=== PATIENT | male | born 1960 | race Caucasian/White ===

== ENCOUNTER → 2021-07-21 14:33 | Outpatient (BNVA) | payer OTHER, SELFPAY | PROVIDERS: Family Provider Internal Medicine; PCP Internal Medicine; Visit Provider Internal Medicine | DX: I25.10 Atherosclerotic heart disease of native coronary artery without angina pectoris (principal); I10 Essential (primary) hypertension; R06.00 Dyspnea, unspecified; F17.210 Nicotine dependence, cigarettes, uncomplicated; Z79.82 Long term (current) use of aspirin | CPT/HCPCS: 99204 ==

== ENCOUNTER 2021-10-14 09:46 | Outpatient (CLI) | payer OTHER, SELFPAY ==
--- NOTE | 2021-10-14 10:15 | USCV_ITS ---
Hung Cunningham Age: 61 Gender: M : 1960 Exam Date: 10/14/2021 10:04 Ordering Phys: Brock Hampton M.D ([email or web address]) Technologist: MICHAEL [place] [facility] [place]: SHORTNESS OF BREATH BP: 124 / 70 HR: 51 Rhythm: Sinus Technical Quality: Adequate MEASUREMENTS (Male / Female) Normal Values 2D ECHO LV Diastolic Diameter PLAX 4.5 cm 4.2 - 5.9 / 3.9 - 5.3 cm LV Systolic Diameter PLAX 2.9 cm IVS Diastolic Thickness 1.6 cm 0.6 - 1.0 / 0.6 - 0.9 cm IVS Systolic Thickness 1.9 cm LVPW Diastolic Thickness 1.8 cm 0.6 - 1.0 / 0.6 - 0.9 cm LVPW Systolic Thickness 1.7 cm LVOT Diameter 2.0 cm LV Ejection Fraction 2D Teich 64.9 % LV Ejection Fraction MOD 2C 59.7 % LV Ejection Fraction 2C AL 62.3 % LA Diameter 3.9 cm LA Width 5.0 cm LA Height 5.4 cm RA Width 4.4 cm RA Height 5.3 cm Aorta at Sinotubular Diameter 2.6 cm M-MODE Aortic Annulus Diameter 3.1 cm LA Ao Ratio MM 1.2 MV E Point Septal Separation 0.1 cm DOPPLER AV Peak Velocity 102.0 cm/s LVOT Peak Velocity 106.0 cm/s AV Area Cont Eq vti 3.0 cm squared AV Area Cont Eq pk 3.3 cm squared MV Peak Velocity 85.0 cm/s MV Area PHT 3.2 cm squared Mitral E to A Ratio 1.6 MV E' Velocity 45.0 cm/s Mitral E to MV E' Ratio 8.0 Mitral E to LV E' Lateral Ratio 7.7 Mitral E to LV E' Septal Ratio 8.4 TR Peak Velocity 222.7 cm/s TR Peak Gradient 19.8 mmHg TR Mean Velocity 212.7 cm/s TR Mean Gradient 19.1 mmHg TR Velocity Time Integral 84.2 cm TV Peak E Velocity 55.0 cm/s Right Atrial Pressure 8.0 mmHg Pulmonary Artery Systolic Pressu 27.8 mmHg PV Peak Velocity 82.0 cm/s RV Acceleration Time 0.1 s RV Ejection Time 0.3 s RV AcT/ET 0.3 FINDINGS Left Ventricle Normal left ventricular size. LV systolic function is normal with EF of 55-60%. No regional wall motion abnormalities. Diastolic function is normal Right Ventricle The right ventricle is normal in size and function. Right Atrium The right atrium is normal in size. Left Atrium The left atrium is normal in size. Mitral Valve Structurally normal mitral valve without significant stenosis or prolapse. There is mild mitral regurgitation. Aortic Valve Structurally normal aortic valve without significant sclerosis or stenosis. There is no aortic regurgitation. Tricuspid Valve Mild tricuspid regurgitation. Pulmonic Valve Not well-visualized Pericardium Normal pericardium without effusion. Aorta Normal ascending aorta dimension. IVC CONCLUSIONS LV systolic function is normal with EF 55 to 60%. Diastolic function is normal Mild mitral regurgitation. Mild tricuspid regurgitation. No comparison studies are available. Brock Hampton MD (Electronically Signed) Final Date: 23 October 2021 00:43 S
== END 2021-10-14 09:47 | disposition home or self-care (01) ==
LOC: RAD 09:47
PROVIDERS: Family Provider Internal Medicine; PCP Internal Medicine; Visit Provider Internal Medicine
DX: R06.02 Shortness of breath (principal); I08.1 Rheumatic disorders of both mitral and tricuspid valves
CPT/HCPCS: 93306

== ENCOUNTER → 2022-09-20 14:56 | Outpatient (BNVA) | payer OTHER, SELFPAY | PROVIDERS: Family Provider Internal Medicine; PCP Family Medicine; Visit Provider Otolaryngology | DX: K13.70 Unspecified lesions of oral mucosa (principal); F17.210 Nicotine dependence, cigarettes, uncomplicated | CPT/HCPCS: 99204 ==

== ENCOUNTER 2022-09-28 10:22 | Day surgery (SDC) | payer OTHER, SELFPAY ==
[2022-09-28] VITALS (10 sets, daily range): BP systolic 134–165; BP diastolic 77–120; PULSE 68–88; RESP 13–18; TEMP 36.1–36.8; O2SAT 97–100
[2022-09-28] MEDS: sodium chloride 0.9% 1,000 ML 30 ML IV (11:03)
--- NOTE | 2022-09-28 11:14 | ANES.PREANE2 ---
Pre-Anesthetic Assessment Height/Weight: Height 1.88 m Weight 83.915 kg Temp Pulse Resp BP Pulse Ox O2 Del Method 98.3 F 72 18 149/114 100 Room Air 09/28/22 11:07 09/28/22 11:07 09/28/22 11:07 09/28/22 11:07 09/28/22 11:07 09/28/22 11:07 Preop Diagnosis: Inner lower lip and gingival lesion Operation Date: 09/28/22 12:10 Proposed Procedures p 21109- excision of oral lesion on floor of mouth with repair K13.70(Not Applicable) - Sonido Zepeda MD Familial anesthetic complications: None Was Beta Virgilio taken within 24 hours: N/A Was Clonidine taken within 24 hours: N/A Last intake: Intake Last Liquid Date 09/27/22 Last Liquid Time 21:00 Last Solid Date 09/27/22 Last Solid Time 21:00 Social Tobacco and No alcohol Exam alert, oriented x 3, clear to auscultation bilaterally and regular rate & rhythm Airway Mallampati: Class I Dentition: other (no teeth) Comments: Comments: full vela Pulmonary Exertional Dyspnea CV/HEM Coronary Artery Disease (stents) and Myocardial Infarction Echo CONCLUSIONS ?LV systolic function is normal with EF 55 to 60%. ?Diastolic function is normal ?Mild mitral regurgitation. ?Mild tricuspid regurgitation. ?No comparison studies are available. GI Gastroesophageal Reflux Disease Metabolic Hyperlipidemia Anesthetic Plan ASA status: 3 Anesthesia: General Risk of > 500 ml blood loss (7ml/kg in children): No Other Pertinent Information Patient missed his lexiscan appointment. Discussed with Dr. Hampton regarding general anesthetic in patient with pending stress test. States that since patient's echo was normal, if patient states he is not still having DAILY and is able to achieve 4 METs its reasonable to proceed, but if patient continues to be symptomatic we should reschedule. Patient states he does not have shortness of breath anymore and states he's able to climb 2 to 3 flights of stairs without any symptoms. 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 Patient re-affirmed he is no longer experiencing any SOB with this knowledge. Medications/Allergies Home Medications Medication Instructions Recorded Confirmed Last Taken Type ergocalciferol (vitamin D2) 1,250 1,250 mcg PO DAILY 06/14/20 09/27/22 09/26/22 History mcg (50,000 unit) capsule lisinopril 20 mg tablet 20 mg PO DAILY 06/14/20 09/27/22 09/27/22 History omeprazole 20 mg capsule,delayed 20 mg PO DAILY 06/14/20 09/27/22 09/27/22 History release pregabalin 100 mg capsule 100 mg PO DAILY 06/14/20 09/27/22 09/27/22 History aspirin 81 mg tablet,delayed 81 mg PO DAILY 07/21/21 09/27/22 09/25/22 History release (Adult Aspirin Regimen) atorvastatin 80 mg tablet 80 mg PO DAILY 07/21/21 09/27/22 09/26/22 History buspirone 15 mg tablet 7.5 mg PO TID 07/21/21 09/27/22 09/26/22 History ropinirole 1 mg tablet 1 mg PO TID 07/21/21 09/27/22 09/26/22 History sertraline 100 mg tablet 200 mg PO DAILY 07/21/21 09/27/22 09/26/22 History trazodone 150 mg tablet 300 mg PO DAILY 07/21/21 09/27/22 09/27/22 History Allergies Allergy/AdvReac Type Severity Reaction Status Date / Time methadone Allergy Unknown Verified 09/27/22 14:39 Current Medications Generic Name Dose Route Start Last Admin Trade Name Freq PRN Reason Stop Dose Admin Sodium Chloride 1,000 mls @ 30 mls/hr 09/28/22 10:45 09/28/22 11:03 Sodium Chloride 0.9% IV 09/29/22 10:44 30 mls/hr .Q24H TREVOR Administration PFSH Anesthesia Medical History Abnormal coronary angiogram History of inguinal hernia Hypertension Surgical History History of back surgery History of colonoscopy Family History Mother CAD (coronary artery disease) Hypertension Grandfather CAD (coronary artery disease) Hypertension Denies family history of Cancer Social History Smoking and tobacco status: current every day smoker Second hand smoke exposure: Yes Alcohol intake: never Substance/Drug Use: never Lives independently: Yes Household members: spouse Data Anesthesia Cardiac Studies: Echocardiogram 10/14/21
[2022-09-28] MEDS: fentaNYL 50 mcg/mL INJ 2mL IVP (11:17)
--- NOTE | 2022-09-28 12:21 | W.PM.OPSUD ---
Surgery/Procedure H&P Update DATE OF PROCEDURE: September 28, 2022 DATE H&P PERFORMED: 09/20/22 H&P UPDATE INFORMATION: I have reviewed H&P completed within last 30 days, I have examined patient prior to procedure and No changes to prior documentation CHANGES TO PREVIOUS DOCUMENTATION: No changes PREOP DIAGNOSIS: Inner lower lip and gingival lesion PRIMARY INDICATION FOR PROCEDURE: Inner lower lip/gingival buccal sulcus leukoplacic lesion PLANNED PROCEDURE: Operation Date: 09/28/22 12:10 Proposed Procedures p 82005- excision of oral lesion on floor of mouth with repair K13.70(Not Applicable) - Sonido Zepeda MD
[2022-09-28] MEDS: ceFAZolin 2,000 MG in sodium chloride 0.9% (plus) 50 ML 100 MG IV (12:26)
[2022-09-28] MEDS: lidocaine-epi 2% 1.7mL Cartridge (OR Only) 8.5 ML XX (12:57)
--- NOTE | 2022-09-28 13:09 | W.PM.OPSUD ---
Surgery/Procedure H&P Update DATE OF PROCEDURE: September 28, 2022 DATE H&P PERFORMED: 09/20/22 PREOP DIAGNOSIS: Inner lower lip and gingival lesion PLANNED PROCEDURE: Operation Date: 09/28/22 12:10 Proposed Procedures p 96186- excision of oral lesion on floor of mouth with repair K13.70(Not Applicable) - Sonido Zepeda MD
--- NOTE | 2022-09-28 13:09 | PM.OP ---
Operative Report Date of procedure: September 28, 2022 Pre-op diagnosis: Preop Diagnosis Inner lower lip and gingival lesion Post-op diagnosis: Lower gingival labial sulcus leukoplakic lesion and left upper gingival buccal sulcus leukoplakic lesion Post-op findings: Leukoplakic lesions centrally in the labial gingival sulcus and left upper gingival buccal sulcus Procedure done: Excision of oral lesions with repair for biopsy purposes Implants: No implants Specimens removed/disposition: Leukoplakic lesions as noted Pathology: Same for permanent section Surgeon: Sonido Zepeda MD Anesthesia: General and Local Estimated blood loss: 25 mL Complications: No complications encountered Findings: Patient had extremely tender leukoplakic lesions and central gingival labial sulcus and left upper gingival buccal sulcus. Brief History: 62-year-old male patient with leukoplakic lesions in the central gingival labial sulcus creeping over the edge of the alveolar ridge and also a lesion in the upper left gingival buccal sulcus which appeared to be similar in appearance. These were irregular white lesions with grooves. Because of the extreme tenderness and to rule out that this could potentially be more than just hyperkeratotic type changes and make sure that these were not potential malignant lesions, the patient is being taken to the operating room to undergo excision of these lesions for biopsy purposes. The procedure risks and complications explained and understood. Informed consent was granted and witnessed. Risks included bleeding infection numbness scarring swelling bruising recurrence need for additional treatment and more serious risks associated with anesthesia. With these things understood informed consent was granted and witnessed. Procedure: Description of procedure: The patient was placed on the operating table in the supine position. Adequate general Endo tracheal tube anesthesia was obtained. The endotracheal tube was taped superiorly out of the operative field. A timeout was accomplished identifying the patient date of plan procedure allergies fire risk and medications given. With all in agreement the procedure continued. Previous to this the patient had injection of 2% Xylocaine with 1 100,000 epinephrine in both locations. After several minutes the lower lesion was addressed first. The white irregular pattern extended from the superior alveolar ridge centrally down to the groove between the gingiva and inner lower lip and extended into the mucous membrane of the lower lip as well. This was removed in a fusiform excision pattern. After removal the area was closed with interrupted 4-0 chromic suture. A similar excision pattern was accomplished on the left upper gingival mucosal sulcus and again closed with interrupted 4-0 chromic suture. Both of these lesions measured approximately 1.5 cm. Therefore a total of 3 cm. The specimens were forwarded to pathology for permanent section diagnosis only and the mouth was irrigated with sterile water and suctioned clean. Patient then had drapes removed and the patient was returned to anesthesia for wake-up and extubation. Patient tolerated the procedure well had an estimated blood loss of 25 mL or less and arrived in recovery in stable condition.
--- NOTE | 2022-09-28 14:15 | ANE.PACU2 ---
Inpatient post-anesthesia follow up: Airway intact: Yes Vital signs: Temperature 97.0 F Pulse Rate 68 Respiratory Rate 18 Blood Pressure 156/120 Pulse Oximetry 97 Oxygen Delivery Me thod Room Air Oxygen Flow Rate 97 Fraction of Inspir ed Oxygen Hydration adequate: Yes Nausea and vomiting: Yes Pain level: 1 Mental status: Baseline
== END 2022-09-28 14:10 | disposition home or self-care (01) ==
PROVIDERS: PCP Family Medicine; Visit Provider Otolaryngology
PROC: (CPT 41826; principal; 2022-09-28 12:00)
DX: K13.21 Leukoplakia of oral mucosa, including tongue (principal); I25.10 Atherosclerotic heart disease of native coronary artery without angina pectoris; Z95.5 Presence of coronary angioplasty implant and graft; I08.1 Rheumatic disorders of both mitral and tricuspid valves; K21.9 Gastro-esophageal reflux disease without esophagitis; E78.5 Hyperlipidemia, unspecified; Z79.82 Long term (current) use of aspirin; I10 Essential (primary) hypertension; F17.200 Nicotine dependence, unspecified, uncomplicated
CPT/HCPCS: 41826 ×2; 88305; J0690; J1100; J2405; J2704; J2710; J3010; J3490; J7030

== ENCOUNTER → 2022-10-06 11:31 | Outpatient (BNVA) | payer OTHER, SELFPAY | PROVIDERS: PCP Family Medicine; Visit Provider Otolaryngology | DX: Z48.89 Encounter for other specified surgical aftercare (principal); K13.70 Unspecified lesions of oral mucosa | CPT/HCPCS: 99024 ==

== ENCOUNTER → 2023-08-07 13:38 | Outpatient (BNVA) | payer OTHER, SELFPAY | PROVIDERS: PCP Family Medicine; Visit Provider Surgery | DX: Z12.11 Encounter for screening for malignant neoplasm of colon (principal) | CPT/HCPCS: 99213 ==

== ENCOUNTER → 2024-11-19 15:03 | Outpatient (BNVA) | payer OTHER, SELFPAY | PROVIDERS: PCP Family Medicine; Visit Provider Internal Medicine | DX: I25.10 Atherosclerotic heart disease of native coronary artery without angina pectoris (principal); I10 Essential (primary) hypertension; Z79.82 Long term (current) use of aspirin; Z95.5 Presence of coronary angioplasty implant and graft; F17.200 Nicotine dependence, unspecified, uncomplicated; R07.9 Chest pain, unspecified | CPT/HCPCS: 93005; 99204 ==

== ENCOUNTER 2024-11-25 10:18 | Outpatient (CLI) | payer OTHER, SELFPAY ==
--- NOTE | 2024-11-25 | ECG_ITS ---
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 Interpretive Statements Procedure: At the baseline, the blood pressure was 151/83 mmHg with a heart rate of 61 bpm. The electrocardiogram showed normal sinus rhythm, normal axis with normal ST and T's. The Lexiscan was infused over a period of 20 seconds. A total of 0.4 mg of Lexiscan was infused. The stress phase was continued for a total of 5 minutes. Heart rate was at the end of stress phase was 85 bpm and a blood pressure of 136/78 mmHg. The EKG at the peak infusion revealed normal sinus rhythm with no significant ST-T wave changes. Sestamibi was injected 20 seconds after the Lexiscan infusion. Conclusion: 1. Normal EKG response to Lexiscan infusion 2. No Lexiscan induced chest pain or cardiac arrhythmia. 3. Normal blood pressure and heart rate response. 4. Nuclear myocardial perfusion scan pending; see separate report. Electronically Signed On 11-25-2024 22:37:27 CDT by Curt Lenz M.D. [email or web address]
[2024-11-25 10:45] VITALS: BMI 23.1
--- NOTE | 2024-11-25 10:46 | NMCV_ITS ---
NM francheska perf SPECT r/s* [id number] Hung Cunningham Age: 64 Gender: M : 1960 Exam Date: 11/25/2024 11:11 Ordering Phys: Brock Hampton M.D ([email or web address]) Technologist: ABBIE Castellon Exam Location: [facility] Indications: cp STRESS TEST [facility] IMAGE PROTOCOL Rest/Stress 1 Lexiscan Day Radiopharmaceutical Dose (mCi) Administration Site Administered by Rest: Tc-99m 10.7 IV ABBIE Castellon Sestamibi Stress:Tc-99m 32.5 IV Suzie Lanier, LPN OR MEDICAL ASSISTANT Sestamibi Rest: 25-Nov-2024 60 Discovery 630 Stress: 25-Nov-2024 30 Discovery 630 0.4mg Lexiscan. Images obtained in supine and prone position. SPECT RESULTS Technical Quality: Good Raw Data Analysis: Normal Image Corrections: No attenuation or motion correction applied Summed Stress Score: 1 Summed Rest Score: 7 Summed Difference Score: 0 PERFUSION FINDINGS SPECT images demonstrate homogeneous tracer distribution throughout the myocardium. FUNCTIONAL RESULTS (calculated via Gated SPECT) Stress Image LV EF (%): 56 Stress EDV (mL):124 TID: 1.05 Stress ESV (mL):54 FUNCTIONAL FINDINGS: There is normal left ventricular systolic function. IMPRESSIONS Myocardial perfusion imaging is normal. Normal left ventricular function. Curt Lenz MD, FACC (Electronically Signed) Final Date: 25 November 2024 22:11 S
[2024-11-25 12:26] VITALS: BP 135/74; PULSE 79
== END 2024-11-25 10:19 | disposition home or self-care (01) ==
LOC: CDL 10:20
PROVIDERS: PCP Family Medicine; Visit Provider Internal Medicine
DX: R07.9 Chest pain, unspecified (principal)
CPT/HCPCS: 36415; 78452; 93017; 96374; A9500; J2785